=== PATIENT | male | born 1940 | race Caucasian/White ===

== ENCOUNTER 2019-10-15 16:54 | Inpatient (IN) | payer MEDICARE, MEDICAID ==
[~2019-10-15] VITALS: Ht 167.6 cm; Wt 60.3 kg
[2019-10-15] MEDS ORDERED: NICO-676 TD (17:23)
[2019-10-15] MEDS ORDERED: FOLI0.4T2 PO (17:23)
[2019-10-15] MEDS ORDERED: LISI10TA5 PO (17:23)
[2019-10-15] MEDS ORDERED: DONE10TA44 PO (17:23)
[2019-10-15] MEDS ORDERED: ESCI10TA PO (17:23)
--- NOTE | 2019-10-15 17:23 | NUR ---
SENT BY [facility] FOR MEDICAL CLEARANCE, PT C/O COUGH & CONGESTION X2 DAYS. PATIENT A/OX2, WITH EPISODES OF CONFUSION, DAUGHTER PRESENT AT CHAIRSIDE. PATIENT IN NO DISTRESS, VITALS STABLE. WILL CONTINUE TO MONITOR.
--- NOTE | 2019-10-15 18:00 | NUR ---
SEEN BY DR. ALLEN, PER DAUGHTER, SHE WILL TAKE PATIENT HOME AND REFUSES AND PSYCH EVALUATION PATIENT IS NOT AGITATED.
[2019-10-15 19:28] LABS: BASOPHILS # (AUTO) 0.1 /CMM (0.0-0.2); BASOPHILS % (AUTO) 1.3 % (0.0-2.0); EOSINOPHILS % (AUTO) 2.7 % (0.0-6.0); HEMATOCRIT 41 % (39-51); HEMOGLOBIN 13.8 g/dL (13.5-17.5); LYMPHOCYTES # (AUTO) 1.7 /CMM (0.8-4.8); LYMPHOCYTES % (AUTO) 19.5 % (20.0-44.0); MEAN CORPUSCULAR HGB CONC 34 g/dl (31.0-36.0); MEAN CORPUSCULAR VOLUME 101 fL (80-96); MONOCYTES # (AUTO) 0.6 /CMM (0.1-1.30); MONOCYTES % (AUTO) 7.4 % (2.0-12.0); NEUTROPHILS # (AUTO) 5.9 /CMM (1.8-8.9); NEUTROPHILS % (AUTO) 69.1 % (43.0-81.0); PLATELET COUNT (AUTO) 330 /CMM (150-450); RED BLOOD CELL COUNT(AUTO) 4.08 MIL/uL (4.5-6.0); WHITE BLOOD COUNT (AUTO) 8.5 K/uL (4.3-11.0)
[2019-10-15 19:36] LABS: CALCIUM, SERUM 8.5 mg/dL (8.5-10.1); CARBON DIOXIDE 25 mmol/L (21-32); CHLORIDE 103 mmol/L (98-107); CREATININE 1.4 mg/dL (0.6-1.3); GLUCOSE 110 mg/dL (74-106); POTASSIUM 4.4 mmol/L (3.5-5.1); SODIUM SERUM 138 mmol/L (136-145); UREA NITROGEN, BLOOD 23 mg/dL (7-18)
[2019-10-15 20:46] LABS: ALANINE AMINOTRANSFERASE 28 U/L (12-78); ALBUMIN 3.9 g/dL (3.4-5.0); ALCOHOL, BLOOD < 3 mg/dL (0-0); ALKALINE PHOSPHATASE 97 U/L (46-116); ASPARTATE AMINOTRANSFERASE 27 U/L (15-37); BILIRUBIN,DIRECT 0.1 mg/dL (0.0-0.2); BILIRUBIN,TOTAL 0.3 mg/dL (0.2-1.0); TOTAL PROTEIN, SERUM 7.8 g/dL (6.4-8.2)
[2019-10-15 20:51] LABS: ACETAMINOPHEN < 10 ug/ml (10-30); SALICYLATE 0.9 mg/dL (2.8-20.0)
[2019-10-15] MEDS ORDERED: CEFTRIAXONE 1GM BAG (ER ONLY) 1 GM/50 ML PIGGYBACK IV ONE (21:00)
[2019-10-15] MEDS ORDERED: AZITHROMYCIN 500 MG in IV D5W 250 ML IV ONE (21:00)
[2019-10-15] MEDS ORDERED: CEFTRIAXONE 1GM BAG (ER ONLY) 50 ML IV ONE (21:07)
[2019-10-15] MEDS ORDERED: AZITHROMYCIN 500 MG VIAL ONE (21:08)
--- NOTE | 2019-10-15 21:38 | NUR ---
REPORT GIVEN TO FELIX RICO FOR [facility]
--- NOTE | 2019-10-15 22:22 | NUR ---
PT BEING TRANSPORTED TO UNIT ON GURNEY WITH EMT AT BEDSIDE. PT IS STABLE FOR TRANSPORT TO UNIT.
[2019-10-15 22:30] VITALS: BP 158/82
[2019-10-15 22:45] VITALS: BP 158/82
[2019-10-15] MEDS ORDERED: ONDANSETRON HCL/PF 4 MG/2 ML VIAL IVP PRN (23:00)
[2019-10-15] MEDS ORDERED: DEXAMETHASONE SOD PHOSPHATE 10 MG/ML VIAL IV ONE (23:00)
[2019-10-15] MEDS ORDERED: Z GUARD REMEDY 2 OZ OINT TP PRN (23:00)
[2019-10-15] MEDS ORDERED: ACETAMINOPHEN 325 MG TABLET PO PRN (23:00)
[2019-10-15] MEDS: QUETIAPINE FUMARATE 25 MG TABLET PO PRN (23:20)
[2019-10-15] MEDS: ENOXAPARIN SODIUM 40 MG/0.4 ML DISP.SYRIN SQ SCH (23:21)
[2019-10-15] MEDS: ALBUTEROL FS 2.5 MG/3 ML VIAL.NEB NEB SCH ×2 (23:25→23:30)
[2019-10-15] MEDS: IPRATROPIUM NEB FS 0.5 MG/2.5 ML AMPUL.NEB NEB SCH ×2 (23:25→23:30)
--- NOTE | 2019-10-15 23:45 | NUR ---
MS-1/HYDRODYNAMICS PROFESSOR PT BECOMING VERY AGITATED. GETTING OUT OF BED. PULLED OUT IV. PT TRIED TO [facility] FROM UNIT BUT WE WERE ABLE TO CONVINCE TO TO RETURN TO HIS ROOM WITH THE HELP OF SECURITY. PT WAS MEDICATED FOR ANXIETY ORDERED BY DR. SCHREIBER. I SPOKE WITH THE PTS DAUGHTER [place] AND UPDATED HER. SHE ALSO SPOKE WITH HER DAD AND HE SEEMS TO BE MORE AGREEABLE TO CARE. NEW IV WAS PLACED BY TINA ON RIGHT FOREARM. IV WAS SECURED WITH KERLIX. PT ASSISTED BACK TO BED. SIDE RAILS UP x2 BED ALARM ACTIVATED AND BED IN LOWEST LOCKED POSITION. WILL CONTINUE TO MONITOR VERY CLOSELY.
[2019-10-16] MEDS: ALBUTEROL FS 2.5 MG/3 ML VIAL.NEB NEB SCH ×6 (03:30→23:16)
[2019-10-16] MEDS: IPRATROPIUM NEB FS 0.5 MG/2.5 ML AMPUL.NEB NEB SCH ×6 (03:30→23:16)
[2019-10-16 04:33] LABS: BASOPHILS # (AUTO) 0.2 /CMM (0.0-0.2); BASOPHILS % (AUTO) 1.7 % (0.0-2.0); EOSINOPHILS % (AUTO) 0.1 % (0.0-6.0); HEMATOCRIT 39 % (39-51); HEMOGLOBIN 13.4 g/dL (13.5-17.5); LYMPHOCYTES # (AUTO) 0.6 /CMM (0.8-4.8); LYMPHOCYTES % (AUTO) 6.6 % (20.0-44.0); MEAN CORPUSCULAR HGB CONC 34 g/dl (31.0-36.0); MEAN CORPUSCULAR VOLUME 100 fL (80-96); MONOCYTES # (AUTO) 0.1 /CMM (0.1-1.30); MONOCYTES % (AUTO) 0.9 % (2.0-12.0); NEUTROPHILS # (AUTO) 8.5 /CMM (1.8-8.9); NEUTROPHILS % (AUTO) 90.7 % (43.0-81.0); PLATELET COUNT (AUTO) 274 /CMM (150-450); RED BLOOD CELL COUNT(AUTO) 3.92 MIL/uL (4.5-6.0); WHITE BLOOD COUNT (AUTO) 9.4 K/uL (4.3-11.0)
[2019-10-16 04:50] LABS: ALANINE AMINOTRANSFERASE 22 U/L (12-78); ALBUMIN 3.5 g/dL (3.4-5.0); ALKALINE PHOSPHATASE 81 U/L (46-116); ASPARTATE AMINOTRANSFERASE 15 U/L (15-37); BILIRUBIN,TOTAL 0.3 mg/dL (0.2-1.0); CALCIUM, SERUM 8.5 mg/dL (8.5-10.1); CARBON DIOXIDE 26 mmol/L (21-32); CHLORIDE 106 mmol/L (98-107); CREATININE 1.3 mg/dL (0.6-1.3); GLUCOSE 140 mg/dL (74-106); MAGNESIUM 2.1 mg/dL (1.8-2.4); PHOSPHORUS 2.6 mg/dL (2.5-4.9); POTASSIUM 4.4 mmol/L (3.5-5.1); SODIUM SERUM 143 mmol/L (136-145); UREA NITROGEN, BLOOD 24 mg/dL (7-18)
[2019-10-16 04:59] LABS: CHOLESTEROL 142 mg/dL (<200); HDL CHOLESTEROL 39 mg/dL (40-60); LDL 103 mg/dL (0-99); THYROID STIMULATING HORMONE 1.154 uIU/mL (0.358-3.74); TRIGLYCERIDES 38 mg/dL (30-150)
[2019-10-16 05:09] LABS: IRON, SERUM 34 ug/dl (50-175); TOTAL IRON BINDING CAPACITY 211 ug/dl (250-450)
[2019-10-16] MEDS: IV NS 0.9% 1,000 ML IV PRN ×2 (05:57→22:21)
[2019-10-16 08:00] VITALS: BP 166/82
--- NOTE | 2019-10-16 08:00 | NUR ---
RN NOTE: PATIENT RECEIVED ALERT AWAKE ORIENTED X 2-3 WITH PERIODS OF FORGETFULNESS/CONFUSION. ON ROOM AIR, NO BREATHING DISTRESS NOTED. DENIES PAIN & DISCOMFORT. ROOM REORIENTATION PROVIDED. SAFETY MEASURES OBSERVED. ENCOURAGE PATIENT TO USE CALL LIGHT FOR ASSISTANCE. CONTINUE WITH PLAN OF CARE. CALL LIGHT WITHIN REACH.
[2019-10-16] MEDS: NICOTINE PATCH (14MG) 14 MG PATCH.TD24 TD SCH (08:22)
[2019-10-16] MEDS: FOLIC ACID 1 MG TABLET PO SCH (08:22)
[2019-10-16] MEDS: DOXYCYCLINE 100 MG in IV NS 0.9% 100 ML IV SCH ×2 (08:22→21:45)
[2019-10-16] MEDS: LISINOPRIL (10MG) 10 MG TABLET PO SCH (08:22)
[2019-10-16] MEDS: GUAIFENESIN LA 600 MG TABLET.SA PO SCH ×2 (08:22→22:03)
[2019-10-16 09:46] LABS: ABG BASE EXCESS -3.7 mmol/L; ABG OXYGEN SATURATION 98.4 % (92.0-98.5); ABG PCO2 22.2 mmHg (35.0-45.0); ABG PH 7.511 (7.350-7.450); ABG PO2 151.4 mmHg (75.0-100.0); COHb 0.2 % (0.5-1.5); MetHb 0.3 % (0.0-1.5); O2Hb 97.9 % (94.0-97.0); SITE, ABG Left Radial; VENT MODE, BG RA
[2019-10-16] MEDS: QUETIAPINE FUMARATE 25 MG TABLET PO PRN (11:41)
[2019-10-16 16:00] VITALS: BP 128/91
--- NOTE | 2019-10-16 18:56 | NUR ---
RN NOTE: PATIENT REMAINS ALERT AWAKE ORIENTED WITH PERIODS OF FORGETFULNESS, CONFUSION. NOTED COMPLIANT WITH CARE. AMBULATORY, STEADY GAIT. ENCOURAGE PATIENT TO USE CALL LIGHT FOR ASSISTANCE. NO FALL/INJURY NOTED. CONTINUE WITH PLAN OF CARE.
--- NOTE | 2019-10-16 19:30 | NUR ---
MS RN RECEIVED PATIENT IN BED A/O X 1-2, STABLE AND NOT IN DISTRESS. WILL CONTINUE TO MONITOR
[2019-10-16 20:00] VITALS: BP 129/76
[2019-10-16] MEDS: ESCITALOPRAM OXALATE (10 MG) 10 MG TABLET PO SCH (22:00)
[2019-10-16] MEDS: DONEPEZIL 5 MG TABLET PO SCH (22:02)
[2019-10-16] MEDS: ENOXAPARIN SODIUM 40 MG/0.4 ML DISP.SYRIN SQ SCH (22:07)
[2019-10-16] MEDS: CEFTRIAXONE 1 G in IV D5W 50 ML IV SCH (22:36)
[2019-10-17] MEDS: ALBUTEROL FS 2.5 MG/3 ML VIAL.NEB NEB SCH ×6 (03:30→23:36)
[2019-10-17] MEDS: IPRATROPIUM NEB FS 0.5 MG/2.5 ML AMPUL.NEB NEB SCH ×6 (03:30→23:36)
[2019-10-17 04:00] VITALS: BP 132/72
--- NOTE | 2019-10-17 06:38 | NUR ---
PT SLEPT WELL, NO S/S OF DISTRESS, KEPT CLEAN, DRY AND COMFORTABLE AT ALL TIMES. NEEDS ATTENDED AND ANTICIPATED. AM CARE RENDERED. SAFETY MEASURES AT ALL TIMES. WILL ENDORSE NEXT SHIFT POC.
[2019-10-17 06:43] LABS: BASOPHILS # (AUTO) 0.1 /CMM (0.0-0.2); BASOPHILS % (AUTO) 0.5 % (0.0-2.0); EOSINOPHILS % (AUTO) 0.2 % (0.0-6.0); HEMATOCRIT 37 % (39-51); HEMOGLOBIN 12.6 g/dL (13.5-17.5); LYMPHOCYTES % (AUTO) 16.6 % (20.0-44.0); MEAN CORPUSCULAR HGB CONC 34 g/dl (31.0-36.0); MEAN CORPUSCULAR VOLUME 99 fL (80-96); MONOCYTES # (AUTO) 0.7 /CMM (0.1-1.30); MONOCYTES % (AUTO) 6.2 % (2.0-12.0); NEUTROPHILS # (AUTO) 9.2 /CMM (1.8-8.9); NEUTROPHILS % (AUTO) 76.5 % (43.0-81.0); PLATELET COUNT (AUTO) 284 /CMM (150-450); RED BLOOD CELL COUNT(AUTO) 3.71 MIL/uL (4.5-6.0)
[2019-10-17 06:50] LABS: CALCIUM, SERUM 8.4 mg/dL (8.5-10.1); POTASSIUM 3.9 mmol/L (3.5-5.1)
--- NOTE | 2019-10-17 07:33 | NUR ---
INITIAL PT LYING IN BED, NO S/S OF DISTRESS, KEPT CLEAN, DRY AND COMFORTABLE AT ALL TIMES. NEEDS ATTENDED AND ANTICIPATED. RAILS UP X3. SAFETY MEASURES AT ALL TIMES. BED IN LOW POSITION ALARMS ON WILL CONTINUE TO MONITOR
[2019-10-17 08:00] VITALS: BP 144/82
[2019-10-17] MEDS: NICOTINE PATCH (14MG) 14 MG PATCH.TD24 TD SCH (08:50)
[2019-10-17] MEDS: DOXYCYCLINE 100 MG in IV NS 0.9% 100 ML IV SCH ×2 (08:50→21:13)
[2019-10-17] MEDS: FOLIC ACID 1 MG TABLET PO SCH (08:50)
[2019-10-17] MEDS: GUAIFENESIN LA 600 MG TABLET.SA PO SCH ×2 (08:51→21:13)
[2019-10-17] MEDS: LISINOPRIL (10MG) 10 MG TABLET PO SCH (08:51)
[2019-10-17] MEDS: QUETIAPINE FUMARATE 25 MG TABLET PO PRN (15:36)
--- NOTE | 2019-10-17 15:36 | NUR ---
BEHAVIOR PT WANDERING HALLS FORGETTING WHERE HIS ROOM IS PULLED IV OUT X3 NOW IS VERY ANXIOUS. MEDICATION GIVEN
[2019-10-17 16:00] VITALS: BP 108/76
--- NOTE | 2019-10-17 19:35 | NUR ---
MS RN NOTES PATIENT IN BED, AWAKE, ALERT AND ORIENTED X 1-2. BREATHING EVEN AND UNLABORED ON ROOM AIR. SHOWS NO SIGNS OF ACUTE RESPIRATORY DISTRESS, NO ACUTE PAIN. IV ON R FOREARM 20G, CLEAN DRY AND INTACT. SHOWS NO SIGNS OF INFILTRATION NO REDNESS. SAFETY PRECAUTION IN PLACE. BED IN LOWEST POSITION, LOCKED, AND CALL LIGHT KEPT WITHIN REACH. WILL CONTINUE TO MONITOR.
[2019-10-17] MEDS: CEFTRIAXONE 1 G in IV D5W 50 ML IV SCH (20:25)
[2019-10-17] MEDS: ESCITALOPRAM OXALATE (10 MG) 10 MG TABLET PO SCH (21:13)
[2019-10-17] MEDS: DONEPEZIL 5 MG TABLET PO SCH (21:13)
[2019-10-17] MEDS: ENOXAPARIN SODIUM 40 MG/0.4 ML DISP.SYRIN SQ SCH (21:16)
[2019-10-18] VITALS: BP 124/67
[2019-10-18] MEDS: ALBUTEROL FS 2.5 MG/3 ML VIAL.NEB NEB SCH ×6 (03:59→23:30)
[2019-10-18] MEDS: IPRATROPIUM NEB FS 0.5 MG/2.5 ML AMPUL.NEB NEB SCH ×6 (03:59→23:30)
--- NOTE | 2019-10-18 06:41 | NUR ---
MS RN NOTES PATIENT IN BED, AWAKE, SLEPT THROUGHOUT THE NIGHT. ALERT AND ORIENTED X 1-2. WITH SITTER AT BEDSIDE. BREATHING EVEN AND UNLABORED ON ROOM AIR. SHOWS NO SIGNS OF ACUTE RESPIRATORY DISTRESS, NO ACUTE PAIN. IV ON R FOREARM 20G, CLEAN DRY AND INTACT. SHOWS NO SIGNS OF INFILTRATION NO REDNESS. ALL DUE MEDICATIONS GIVEN. SAFETY PRECAUTION IN PLACE. BED IN LOWEST POSITION, LOCKED, AND CALL LIGHT KEPT WITHIN REACH. WILL ENDORSE TO ONCOMING NURSE.
--- NOTE | 2019-10-18 07:42 | NUR ---
RN OPENING NOTES Patient received on room air, no sob noted, patient a/o x1 at this time. Regular diet at this time. R FA 20 gauge with NS @ 75 ml per hr running. Plan is to DC patient today. Bed at the lowest setting, call light within reach, side rails up x2.
[2019-10-18 08:00] VITALS: BP 138/68
[2019-10-18] MEDS: GUAIFENESIN LA 600 MG TABLET.SA PO SCH ×2 (08:50→21:41)
[2019-10-18] MEDS: FOLIC ACID 1 MG TABLET PO SCH (08:52)
[2019-10-18] MEDS: NICOTINE PATCH (14MG) 14 MG PATCH.TD24 TD SCH (08:52)
[2019-10-18] MEDS: LISINOPRIL (10MG) 10 MG TABLET PO SCH (08:52)
[2019-10-18] MEDS: DOXYCYCLINE 100 MG in IV NS 0.9% 100 ML IV SCH ×2 (08:56→22:21)
[2019-10-18 13:27] LABS: BASOPHILS # (AUTO) 0.1 /CMM (0.0-0.2); BASOPHILS % (AUTO) 1.2 % (0.0-2.0); EOSINOPHILS % (AUTO) 1.5 % (0.0-6.0); HEMATOCRIT 40 % (39-51); HEMOGLOBIN 13.4 g/dL (13.5-17.5); LYMPHOCYTES # (AUTO) 1.4 /CMM (0.8-4.8); MEAN CORPUSCULAR HGB CONC 34 g/dl (31.0-36.0); MEAN CORPUSCULAR VOLUME 100 fL (80-96); MONOCYTES # (AUTO) 0.6 /CMM (0.1-1.30); MONOCYTES % (AUTO) 6.7 % (2.0-12.0); NEUTROPHILS # (AUTO) 6.5 /CMM (1.8-8.9); NEUTROPHILS % (AUTO) 74.6 % (43.0-81.0); PLATELET COUNT (AUTO) 294 /CMM (150-450); RED BLOOD CELL COUNT(AUTO) 3.96 MIL/uL (4.5-6.0); WHITE BLOOD COUNT (AUTO) 8.8 K/uL (4.3-11.0)
[2019-10-18 13:34] LABS: CALCIUM, SERUM 8.4 mg/dL (8.5-10.1); CREATININE 1.2 mg/dL (0.6-1.3); POTASSIUM 3.9 mmol/L (3.5-5.1)
[2019-10-18 16:00] VITALS: BP 138/86
--- NOTE | 2019-10-18 18:31 | NUR ---
RN CLOSING NOTES Patient remains on room air,no sob noted, patient acts confused at times and has a 1;1 sitter at all times. Regular diet, with L forearm with NS 75 ml per hour. DC planning is for patient to go to [facility] tomorrow. Bed at the lowest setting, call light within reach, side rails up x2. Will give report to NOC RN for [facility] bedside.
--- NOTE | 2019-10-18 19:20 | NUR ---
MS1 RN NOTES RECEIVED ON BED A/O X4,ABLE TO VERBALIZED NEED.SALINE LOCK LEFT FOREARM INTACT AND PATENT.CALL LIGHT IN REACH,NEEDS ANTICIPATED.
[2019-10-18 20:00] VITALS: BP 125/75
[2019-10-18 20:16] VITALS: BP 125/75
[2019-10-18] MEDS: CEFTRIAXONE 1 G in IV D5W 50 ML IV SCH (21:38)
[2019-10-18] MEDS: DONEPEZIL 5 MG TABLET PO SCH (21:40)
[2019-10-18] MEDS: ENOXAPARIN SODIUM 40 MG/0.4 ML DISP.SYRIN SQ SCH (21:40)
[2019-10-18] MEDS: ESCITALOPRAM OXALATE (10 MG) 10 MG TABLET PO SCH (21:41)
--- NOTE | 2019-10-19 01:00 | NUR ---
MS1 RN NOTES REFUSED IVF THIS TIME
[2019-10-19] MEDS: IPRATROPIUM NEB FS 0.5 MG/2.5 ML AMPUL.NEB NEB SCH ×4 (03:30→15:30)
[2019-10-19] MEDS: ALBUTEROL FS 2.5 MG/3 ML VIAL.NEB NEB SCH ×4 (03:30→15:30)
[2019-10-19 04:00] VITALS: BP 120/80
[2019-10-19 04:24] VITALS: BP 120/80
--- NOTE | 2019-10-19 06:48 | NUR ---
MS RN NOTES A/O X1-2.IN ROOM WITH EPISODE OF CONFUSION,WANDERS AT TIMES.REFUSED IVF,NEEDS ORDER FOR PSYCHE EVAL.POSSIBLE D/C TO PSYCHE UNIT TODAY.IN NO ACUTE DISTRESS.
--- NOTE | 2019-10-19 07:10 | NUR ---
RN OPENING NOTES RECEIVED PATIENT RESTING IN BED COMFORTABLY, DENIES ANY S/SX OF RESP DISTRESS OR SOB. PT IS AOX2, VRBAL, AMBUALTORY. HE IS ON RA, TOLERATING WELL. IV SITE IS PATENT AND INTACT. SKIN IS INTACT, NO WOUNDS. SAFETY MEASURES HAVE BEEN IMPLEMENTED, CALL LIGHT IS WITHIN REACH, BED IS IN LOWEST AND LOCKED POSITION, SIDE RAILS UP X2, WILL CONTINUE TO MONITOR FOR ANY CHANGES.
[2019-10-19 08:00] VITALS: BP 140/78
[2019-10-19 09:07] VITALS: BP 115/75
[2019-10-19] MEDS: FOLIC ACID 1 MG TABLET PO SCH (09:07)
[2019-10-19] MEDS: DOXYCYCLINE 100 MG in IV NS 0.9% 100 ML IV SCH (09:07)
[2019-10-19] MEDS: NICOTINE PATCH (14MG) 14 MG PATCH.TD24 TD SCH (09:07)
[2019-10-19] MEDS: GUAIFENESIN LA 600 MG TABLET.SA PO SCH (09:07)
[2019-10-19] MEDS: LISINOPRIL (10MG) 10 MG TABLET PO SCH (09:07)
[2019-10-19 12:41] LABS: BASOPHILS # (AUTO) 0.1 /CMM (0.0-0.2); BASOPHILS % (AUTO) 0.7 % (0.0-2.0); EOSINOPHILS % (AUTO) 1.8 % (0.0-6.0); HEMATOCRIT 44 % (39-51); HEMOGLOBIN 14.6 g/dL (13.5-17.5); LYMPHOCYTES # (AUTO) 1.3 /CMM (0.8-4.8); LYMPHOCYTES % (AUTO) 13.8 % (20.0-44.0); MEAN CORPUSCULAR HGB CONC 33 g/dl (31.0-36.0); MEAN CORPUSCULAR VOLUME 101 fL (80-96); MONOCYTES # (AUTO) 0.8 /CMM (0.1-1.30); MONOCYTES % (AUTO) 7.8 % (2.0-12.0); NEUTROPHILS # (AUTO) 7.3 /CMM (1.8-8.9); NEUTROPHILS % (AUTO) 75.9 % (43.0-81.0); PLATELET COUNT (AUTO) 332 /CMM (150-450); RED BLOOD CELL COUNT(AUTO) 4.35 MIL/uL (4.5-6.0); WHITE BLOOD COUNT (AUTO) 9.6 K/uL (4.3-11.0)
[2019-10-19] MEDS ORDERED: GUAI600T53 PO (13:03)
[2019-10-19] MEDS ORDERED: DOXY100T2 PO (13:03)
[2019-10-19 13:21] LABS: CREATININE 1.3 mg/dL (0.6-1.3); POTASSIUM 3.9 mmol/L (3.5-5.1)
--- NOTE | 2019-10-19 15:06 | NUR ---
RN DC NOTES PT HAS BEEN DISCHARGED TO [facility]. TRANSFER REPORT GIVEN TO RN AT FACILITY. EXIT CARE UTILIZED DURING DC PROCESS, ID BAND CUT OFF. WENT OVER DC TEACHING WITH PATIENT AND PT DAUGHTER, BOTH VERBALIZED UNDERSTANDING. PT LEFT IN STABLE CONDITION WITHOUT AMBULATORY DEVICE. BELONGINGS LIST WAS CHECKED OFF.
[2019-10-19] MEDS ORDERED: GUAIFENESIN LA 600 MG TABLET.SA PO SCH (21:00)
[2019-10-19] MEDS ORDERED: DOXYCYCLINE HYCLATE (100 MG) 100 MG TABLET PO SCH (21:00)
== END 2019-10-19 15:00 | DRG 193 ==
LOC: ER 16:58 → MEDSG1 22:08
PROVIDERS: ADMIT Nurse Practitioner Acute Care; ATTEND Nurse Practitioner Acute Care
DX: J15.9 Unspecified bacterial pneumonia (principal); N17.0 Acute kidney failure with tubular necrosis; G93.41 Metabolic encephalopathy; J44.0 Chronic obstructive pulmonary disease with (acute) lower respiratory infection; I10 Essential (primary) hypertension; G30.9 Alzheimer's disease, unspecified; F02.80 Dementia in other diseases classified elsewhere, unspecified severity, without behavioral disturbance, psychotic disturbance, mood disturbance, and anxiety; F32.9 Major depressive disorder, single episode, unspecified; Z87.891 Personal history of nicotine dependence; F29 Unspecified psychosis not due to a substance or known physiological condition
CPT/HCPCS: 36415; 36600; 71046; 80048-TC; 80053-TC; 80061-TC; 80076-TC; 80305; 82803-TC; 83540-TC; 83735-TC; 84100-TC; 84443-TC; 84484-TC; 85025-TC; 87040-TC; 87081-TC; 93307-TC; 94799-TC; 97116-TC; 97530-TC; G0378; G0480; J0456; J0696; J1100; J1650; J3490; J7030; J7060